=== PATIENT | female | born 1960 | race Caucasian/White ===

== ENCOUNTER → 2021-09-15 | Outpatient (CLI) | payer MEDICARE | LOC: KOH-I 09-04 09:30 | DX: M25.531 Pain in right wrist (principal); M25.541 Pain in joints of right hand; R74.01 Elevation of levels of liver transaminase levels; Z90.49 Acquired absence of other specified parts of digestive tract | CPT/HCPCS: 73110; 73130; 76705 ==

== ENCOUNTER 2022-04-19 02:12 | Emergency (ER) | payer OTHER | END 2022-04-19 09:55 | disposition home or self-care (01) | LOC: ER1 02:12 | DX: T43.011A Poisoning by tricyclic antidepressants, accidental (unintentional), initial encounter (principal); T40.2X1A Poisoning by other opioids, accidental (unintentional), initial encounter; Z88.0 Allergy status to penicillin | CPT/HCPCS: 99284 ==